=== PATIENT | female | born 1965 | race Caucasian/White ===

== ENCOUNTER 2020-02-01 14:29 | Emergency (ER) | payer BC ==
[~2020-02-01] VITALS: Ht 160 cm; Wt 68.9 kg
[2020-02-01 14:34] VITALS: Ht 160 cm; Wt 68.9 kg
[2020-02-01 15:45] LABS: BASOPHIL % 0.6 % (0-2); PLATELET COUNT 242 x10^3mcL (130-400); RED CELL DISTRIBUTION WIDTH 12.7 % (11.5-14.5)
[2020-02-01 15:58] LABS: CALCIUM 9.1 mg/dL (8.5-10.1); CARBON DIOXIDE 29.3 mmol/L (21-32); CHLORIDE SERUM 105 mmol/L (98-107); CREATININE SERUM 0.8 mg/dL (0.6-1.0); GFR1 > 60 mL/min; GLUCOSE SERUM 91 mg/dL (74-106); POTASSIUM SERUM 3.9 mmol/L (3.5-5.1); SODIUM SERUM 141 mmol/L (136-145)
[2020-02-01 16:03] LABS: ALBUMIN 4.1 g/dL (3.4-5.0); ALKALINE PHOSPHATASE 45 U/L (46-116); ALT/SGPT 30 U/L (14-59); AST/SGOT 18 U/L (15-37); BILIRUBIN TOTAL 0.4 mg/dL (0.20-1.00); CHOLESTEROL 160 mg/dL (<200); TOTAL PROTEIN, SERUM 7.2 g/dL (6.4-8.2); TRIGLYCERIDES 36 mg/dL (<150)
[2020-02-01 16:08] LABS: CHOLESTEROL/HDL RATIO 2.4; HDL CHOLESTEROL 66 mg/dL (40-60)
[2020-02-01 16:13] LABS: T3 TOTAL 1.15 ng/mL
[2020-02-01 16:51] LABS: FREE T4 0.99 ng/dL (0.76-1.46); FREE THYROXINE INDEX 2.1 ug/dL (1.4-4.5); T4(THYROXINE) 6.6 ug/dL (4.7-13.3)
[2020-02-01 17:30] VITALS: BP 135/77
== END 2020-02-01 17:33 | disposition home or self-care (01) ==
LOC: ED 14:29
PROVIDERS: Specialist
DX: G51.0 Bell's palsy (principal); Z88.8 Allergy status to other drugs, medicaments and biological substances
CPT/HCPCS: 36415; 83880; 84439; J7512